=== PATIENT | male | born 1955 | race Caucasian/White ===

== ENCOUNTER → 2023-09-27 07:45 | Outpatient (REF) | payer OTHER, SELFPAY | LOC: RAD 07:45 | PROVIDERS: ATTENDING PHYSICIAN Internal Medicine Cardiovascular Disease; FAMILY PHYSICIAN Family Medicine | DX: I65.23 Occlusion and stenosis of bilateral carotid arteries (principal) | CPT/HCPCS: 93880 ==

== ENCOUNTER → 2024-05-09 13:39 | Outpatient (REF) | payer OTHER, SELFPAY | LOC: RCS 13:39 | PROVIDERS: ATTENDING PHYSICIAN Physician Assistant Medical; FAMILY PHYSICIAN Family Medicine; OTHER PHYSICIAN Internal Medicine Cardiovascular Disease | DX: Z95.2 Presence of prosthetic heart valve (principal) | CPT/HCPCS: 93306 ==

== ENCOUNTER → 2024-08-17 13:25 | Outpatient (REF) | payer OTHER, SELFPAY | LOC: MRI 13:25 | PROVIDERS: ATTENDING PHYSICIAN Specialist; FAMILY PHYSICIAN Family Medicine | DX: R97.20 Elevated prostate specific antigen [PSA] (principal); C67.8 Malignant neoplasm of overlapping sites of bladder; D07.5 Carcinoma in situ of prostate | CPT/HCPCS: 72197; 76014; 76015; A9575 ==

== ENCOUNTER → 2024-08-22 14:25 | Outpatient (REF) | payer OTHER, SELFPAY ==
[2024-08-22 16:09] LABS: Blood Urea Nitrogen 24 mg/dl (9-20); Calcium 10.0 mg/dl (8.4-10.2); Carbon Dioxide 27 mmol/L (22-30); Chloride 106 mmol/L (98-107); Glucose 96 mg/dl (70-99); Potassium 4.4 mmol/L (3.5-5.1); eGFR > 60.00
[2024-08-22 16:16] LABS: Sodium 139 mmol/L (135-145)
== END ==
LOC: REG 14:25
PROVIDERS: ATTENDING PHYSICIAN Internal Medicine Cardiovascular Disease; FAMILY PHYSICIAN Family Medicine
DX: I10 Essential (primary) hypertension (principal)
CPT/HCPCS: 36415; 80048

== ENCOUNTER 2024-10-03 02:22 | Observation (INO) | payer OTHER, SELFPAY ==
[2024-10-02 17:32] VITALS: BP 179/99
--- NOTE | 2024-10-02 17:43 | ED.GENMED ---
ED Provider Triage
<Tarsha Marrero PA-C - Last Filed: 10/02/24 17:44>
-
Patient seen by provider in Triage?: Seen in Triage
Attestation: A medical screening examination has been initiated by a qualified medical provider. Based on the assessment performed at this time, it has been determined that an emergent medical condition may exist and the patient has been informed
that further medical evaluation and possible additional diagnostic testing may be needed.
HPI: 69yoM here with R middle finger swelling and pain since last week. On abx without relief. Sent in by PCP for concern for sepsis. No f/c or systemic symptoms.
GENERAL: Alert , in no apparent distress
EYE: No visual abnormalities.
NECK: Trachea midline
ENT: No visible abnormalities.
LUNGS: No acute respiratory distress
NEUROLOGICAL: Alert and oriented
SKIN: Skin intact. No visible changes.
MUSCULOSKELETAL: Moving extremities normally
PSYCH: Normal and appropriate interaction.
This is a medical evaluation conducted in person to initiate diagnostic evaluation and provide initial therapeutics. Please see further documentation by the treating clinician.
Labs and hand x-rays ordered.
History of Present Illness
<Tarsha Marrero PA-C - Last Filed: 10/02/24 17:44>
General
Chief Complaint: Musculo-Skeletal Complaint
Time Seen by Provider: 10/02/24 23:03
<Vineet Escobar Jr., PA-C - Last Filed: 10/03/24 00:53>
General
Source: patient
Exam Limitations: none
Nursing documentation reviewed up to this point in time: agreed with
History of Present Illness
History of Present Illness:
69-year-old male past medical history of significant heart disease pacemaker mechanical heart valve currently on Coumadin presenting to the emergency department today with concerns of redness and swelling to the right middle finger over the past 5
weeks. Due to be after he was pulling weeds and cleaning a birdbath the day prior. Redness has been ongoing has been onset here for 5 days without any improvement. There is been slight worsening over the past 24 hours. Denies any systemic
symptoms.
Past History
<Tarsha Marrero PA-C - Last Filed: 10/02/24 17:44>
Past History
ED Past Medical History: CAD, Cancer, HTN, Hypercholesterolemia and Other
ED Past Surgical History: Cardiac and Urological
Review of Systems
<Vineet Escobar Jr., PA-C - Last Filed: 10/03/24 00:53>
Review of Systems
Allergies reviewed?: Yes
All Other Systems: ROS reviewed and negative except as documented in HPI and ROS
Phy Exam
<Vineet Escobar Jr., PA-C - Last Filed: 10/03/24 00:53>
Physical Exam
Physical Exam:
GENERAL: Alert , in no apparent distress
EYE: pupils equal and reactive
NECK: Supple, no significant adenopathy.
ENT: o/p clr, mmm.
CARDIAC: Regular rate and rhythm .
LUNGS: Clear breath sounds bilaterally, no acute respiratory distress, no wheezes/rales/rhonchi
ABDOMEN: Soft, without focal tenderness, no r/g, no cvat
NEUROLOGICAL: Alert and oriented, no focal neuro deficits
SKIN: Warm and dry, skin intact.
MUSCULOSKELETAL: Swelling redness to the right third digit mainly on the extensor surface there is some swelling into the hand there also is swelling on the flexor surface but no discomfort into the palm. Is able to flex and extend the finger but
does have discomfort when doing so.
PSYCH: Normal and appropriate interaction.
Course
<Tarsha Marrero PA-C - Last Filed: 10/02/24 17:44>
Orders/Labs/Results
Orders:
Orders
10/02/24 17:44
CR Hand - Right Min 3 Views Urgent
Comment:
Reason For Exam: middle finger swelling/pain
10/02/24 17:47
Complete Blood Count/With Diff Urgent
Comprehensive Metabolic Panel Urgent
Blood Culture Urgent
[facility] Source: Blood/Venous
Specimen Description:
10/02/24 23:25
CefTRIAXone [Rocephin] 2,000 mg IV NOW STA
10/02/24 23:28
PT/INR [Prothrombin Time] Urgent
Vancomycin [Vancocin] 2,000 mg 0.9% Sodium Chloride 500 ml [Nss] 500 ml IV NOW
10/02/24 23:49
Sterile Water [Sterile Water For Injection] 10 ml .ROUTE .[facility]
Abnormal Lab Results
10/02/24
17:47
Abs Immat Gran (auto) 0.1 H 10^3/uL
(0-0.05)
Absolute Neuts (auto) 6.7 H 10^3/uL
(1.4-6.5)
Absolute Monos (auto) 0.9 H 10^3/uL
(0.1-0.6)
Immature Gran % 0.6 H %
(0-0.5)
Lymphocytes % 14.1 L %
(20.5-51.1)
Monocytes % 9.5 H %
(1.7-9.3)
BUN 27 H mg/dl
(9-20)
10/02/24 17:47
10/02/24 17:47
Vital Signs
Initial and Last Documented VS:
Initial Vital Signs
Temp Pulse Resp BP Pulse Ox
97.7 F 68 16 179/99 98
10/02/24 17:32 10/02/24 17:32 10/02/24 17:32 10/02/24 17:32 10/02/24 17:32
Last Documented Vital Signs
Temp Pulse Resp BP Pulse Ox
97.7 F 68 16 154/96 98
10/02/24 17:32 10/02/24 17:32 10/02/24 17:32 10/02/24 21:51 10/02/24 21:50
<Vineet Escobar Jr., PA-C - Last Filed: 10/03/24 00:53>
Orders/Labs/Results
Orders:
Orders
10/02/24 17:44
CR Hand - Right Min 3 Views Urgent
Comment:
Reason For Exam: middle finger swelling/pain
10/02/24 17:47
Complete Blood Count/With Diff Urgent
Comprehensive Metabolic Panel Urgent
Blood Culture Urgent
[facility] Source: Blood/Venous
Specimen Description:
10/02/24 23:25
CefTRIAXone [Rocephin] 2,000 mg IV NOW STA
10/02/24 23:28
PT/INR [Prothrombin Time] Urgent
Vancomycin [Vancocin] 2,000 mg 0.9% Sodium Chloride 500 ml [Nss] 500 ml IV NOW
10/02/24 23:49
Sterile Water [Sterile Water For Injection] 10 ml .ROUTE .[facility]
Abnormal Lab Results
10/02/24
17:47
Abs Immat Gran (auto) 0.1 H 10^3/uL
(0-0.05)
Absolute Neuts (auto) 6.7 H 10^3/uL
(1.4-6.5)
Absolute Monos (auto) 0.9 H 10^3/uL
(0.1-0.6)
Immature Gran % 0.6 H %
(0-0.5)
Lymphocytes % 14.1 L %
(20.5-51.1)
Monocytes % 9.5 H %
(1.7-9.3)
BUN 27 H mg/dl
(9-20)
10/02/24 17:47
10/02/24 17:47
Vital Signs
Initial and Last Documented VS:
Initial Vital Signs
Temp Pulse Resp BP Pulse Ox
97.7 F 68 16 179/99 98
10/02/24 17:32 10/02/24 17:32 10/02/24 17:32 10/02/24 17:32 10/02/24 17:32
Last Documented Vital Signs
Temp Pulse Resp BP Pulse Ox
97.7 F 68 16 154/96 98
10/02/24 17:32 10/02/24 17:32 10/02/24 17:32 10/02/24 21:51 10/02/24 21:50
Procedures
<Vineet Escobar Jr., PA-C - Last Filed: 10/03/24 00:53>
Splint Check
Splint checked by provider?: Yes
Circulation/Movement/Sensation post splint application: brisk cap refill and pulses intact
Splinting/Sling Placement
Right Third Finger:
Procedure completed by: Tech
Pre-splint extermity exam: neurovascular intact
Type of splint: aluminium finger and finger-extension position
Splint material: aluminum-foam
Splint checked by provider?: Yes
Normal distal neurovascular exam?: Yes
<Vineet Escobar Jr., PA-C - Last Filed: 10/03/24 00:53>
MDM/Problems Addressed
MDM/Problems Addressed:
69-year-old male presenting to the emergency department today with concerns of ongoing inflammation to his right middle finger has been taking cefdinir for the past 5 days with presumed cellulitis to the area. Ongoing redness slightly worsening
over the past 24 hours. On arrival blood pressure elevated otherwise vital signs are stable. Afebrile normal white count no history of inflammatory disorders. Concerning the patient has been on appropriate outpatient antibiotics with worsening of
symptoms plan to admit for IV antibiotics and reassessment. No evidence of fluctuant or induration no obvious purulence. No evidence of flexor tenosynovitis. No tenderness into the palm or the flexor tendon. Able to flex with minimal discomfort
<Tarsha Marrero PA-C - Last Filed: 10/02/24 17:44>
*Pulse Oximetry
SaO2: 98
Oxygen Mode of Delivery: Room air
<Vineet Escobar Jr., PA-C - Last Filed: 10/03/24 00:53>
*Pulse Oximetry
Patient hypoxic: no (98)
*Critical Care Note
Total Time (30-74mins, 75-104mins- exclusive of procedures): Not Applicable
ED Attending Note
<Tarsha Marrero PA-C - Last Filed: 10/02/24 17:44>
-
Portions of this chart may have been created with voice recognition software.� Occasional wrong word or��sound alike� substitutions may have occurred due to the inherent limitations of voice recognition software.
Discharge Plan
Departure
Patient Disposition: Admit
Date of Disposition: 10/03/24
Time of Disposition: 00:53
Admit to: Med/Surg
Admit to doctor: Peterson
Presentation/result/management discussed w/ accepting MD/DO: Hospitalist
Patient with high blood pressure during this ER visit?: No
Condition: Good
Covid-19: Not Applicable
Discharge Problem:
Finger infection
Prescriptions:
No Action
atorvastatin 80 MG tablet
80 mg PO QPM Qty: 90 3RF
amlodipine 2.5 MG tablet
2.5 mg PO DAILY
irbesartan 150 MG tablet
150 mg PO DAILY
warfarin [Jantoven] 5 MG tablet
5 mg PO QPM
Patient Comments:
TAKES WITH 1MG TO EQUAL 6MG
aspirin 81 MG tablet,delayed release (DR/EC)
81 mg PO DAILY Qty: 30 0RF
Rx Instructions:
Start in 08/30/19
ezetimibe 10 MG tablet
10 mg PO QPM
warfarin [Jantoven] 0.5 MG tablet
0.5 mg PO QPM
Referrals:
PRIVATE,PHYSICIAN [Family Provider, Internal Medicine]
Interventions
Interventions:
*Risk Screen - Suicide Last Done: 10/02/24 21:37
*General Assessment Last Done: 10/02/24 21:37
*Neglect/Abuse Screening Last Done: 10/02/24 21:37
*ED- Fall Risk Assessment Last Done: 10/02/24 21:37
*ED COVID-19 Vaccine History Last Done: 10/02/24 21:37
ED-Musculoskeletal Assessment Last Done: 10/02/24 21:37
Discharge Date and Time
Print Language: FAROESE
[2024-10-02 18:01] LABS: Hematocrit 41.6 % (39.0-52.0); Hemoglobin 13.8 g/dL (13.0-18.0); Mean Corp Hgb Conc. 33.2 g/dL (33.0-37.0); Mean Corpuscular Volume 84.9 fL (80.0-94.0); Nucleated Red Blood Cells % 0 % (-); Platelet Count 293 10^3/uL (130-400); Red Cell Dist. Width 13.7 % (11.5-14.5)
[2024-10-02 18:26] LABS: ALT (SGPT) 48 U/L (0-50); AST (SGOT) 38 U/L (17-59); Albumin 4.7 g/dl (3.5-5.0); Alkaline Phosphatase 55 U/L (38-126); Blood Urea Nitrogen 27 mg/dl (9-20); Calcium 9.6 mg/dl (8.4-10.2); Carbon Dioxide 26 mmol/L (22-30); Chloride 106 mmol/L (98-107); Glucose 99 mg/dl (70-99); Potassium 4.3 mmol/L (3.5-5.1); Sodium 137 mmol/L (135-145); Total Protein 6.7 g/dl (6.3-8.2); eGFR > 60.00
[2024-10-02 21:51] VITALS: BP 154/96
[2024-10-02 21:53] VITALS: BMI 30.2
[2024-10-03] MEDS: ROCEPHIN 2000 MG IV ×2 (00:27→23:04)
[2024-10-03] MEDS: VANCOCIN 540 MG IV (01:51)
--- NOTE | 2024-10-03 01:57 | HPS.HSE ---
Family Physician
-
Family Physician: PHYSICIAN PRIVATE
Chief Complaint
-
Finger Pain
History of Present Illness
Patient is a 69y M with PMH significant for ASCVD, mechanical MVR and heart block s/p PPM who presents to ED complaining of finger pain. Patient states that he was weeding about one week ago and he noted stinging pain in the the fingertips of
both hands. He saw no evident wound, injury, etc. He developed progressive pain and swelling - specifically in the L index finger and R middle finger. He was seen by his PCP on and started on cefdinir for possible cellulitis/ infection.
His symptoms did not improve. He has since noted redness extending along the R 3rd finger and towards the hand / palm.
Patient denies any fevers / chills, N/V/D, etc.
Medical History
Past Medical History
Past Medical History: Reports Other
Additional Past Medical History:
ASCVD
Mitral Regurgitation
Second Degree Heart Block
Hypertension
Prostate cancer
Bladder cancer
Past Surgical History: Reports Other
Additional Past Surgical History:
CABG x 3
Mechanical MVR
PPM Placement
TURBT / BCG instillation
T&A
Social History
Tobacco: Non-smoker
Alcohol: Occasional
Drug: None
Family History
Family History: Not pertinent
Allergies / Home Medications
Allergies reflects when Allergies were last updated in [facility].
Home Medications with original date entered in [facility]
Allergy/Medication List:
Allergies
Allergy/AdvReac Type Severity Reaction Status Date / Time
lisinopril Allergy Itching Verified 10/02/24 17:36
Home Medications
atorvastatin 80 mg tablet 80 mg PO QPM #90 tabs 08/16/18
aspirin 81 mg tablet,delayed release 81 mg PO DAILY Blood clot prevention/tx #30 tabs 08/25/19
ezetimibe 10 mg tablet 10 mg PO QPM 01/15/21
amlodipine 5 mg tablet 5 mg PO DAILY 10/03/24
hydrochlorothiazide 12.5 mg tablet 12.5 mg PO DAILY 10/03/24
irbesartan 300 mg tablet 300 mg PO DAILY 10/03/24
warfarin 6 mg tablet 6 mg PO DAILY 10/03/24
Review of Systems
-
History Source: Patient
A 12 point ROS was completed and negative except as noted: Yes
Constitutional: Denies Fever or Chills
Respiratory: Denies Cough or Trouble Breathing
Cardiac: Denies Chest Pain or Palpitations
Abdomen/GI: Denies Abdominal Pain, Nausea, Vomiting or Diarrhea
Musculoskeletal: Reports Joint Pain
Skin: Reports Other (redness / swelling)
Neurological: Denies Dizzy or Headache
Physical Exam
Vital Signs
Vital Signs
Temp Pulse Resp BP Pulse Ox
97.7 F 68 16 154/96 98
10/02/24 17:32 10/02/24 17:32 10/02/24 17:32 10/02/24 21:51 10/02/24 21:50
Physical Exam
General: Other (69y M in no acute distress.)
HEENT: Moist mucous membranes and PERRLA
Respiratory: Clear; No Wheezes, Rales or Rhonchi
Cardiac: S1/S2, Regular Rhythm and Murmur (II/ HENRI. Mechanical S1.)
GI: Soft, Non Tender, Non Distended and Normal Bowel Sounds
Musculoskeletal: No Clubbing, No Cyanosis and Other (Localized edema distal aspect of the L index finger and R middle finger with erythema along lateral aspect of the R middle finger. No nail discharge / bleeding.)
Neuro: AO x 3
Laboratory Results
-
10/02/24 17:47
10/02/24 17:47
Laboratory Results
Total Bilirubin 0.5 mg/dl (0.2-1.3) 08/11/25 17:47
AST 38 U/L (17-59) 10/02/24 17:47
ALT 48 U/L (0-50) 10/02/24 17:47
Alkaline Phosphatase 55 U/L (38-126) 10/02/24 17:47
Impression/Plan
-
A/P: Patient is a 69y M with PMH significant for ASCVD, mechanical MVR, hypertension and prostate cancer who presents to ED complaining of one week of pain, swelling and redness in the fingers despite PO abx.
Finger Pain / Inflammation
- Observe overnight for further evaluation and treatment.
- ? irritant reaction from nettle / weeding injury.
- ? secondary infection - though no response to oral abx thus far.
- Continue IV abx started in the ED for now.
- Follow for clinical improvement.
- Monitor for any systemic fever or other complaints.
ASCVD
Mechanical MVR
Heart Block s/p PPM
- Stable. Continue usual CV med regimen.
- Continue Coumadin - follow daily INR and adjust as needed - especially while on abx.
Benign Hypertension
- Stable. Continue usual home med regimen.
Prostate Cancer
- Recent diagnosis. Watchful waiting approach.
DVT Prophylaxis: On Coumadin
Code Status: Full
[2024-10-03 02:12] LABS: INR 2.66; PT 28.3 Sec (11.4-14.6)
[2024-10-03 06:54] LABS: Hematocrit 41.8 % (39.0-52.0); Hemoglobin 13.9 g/dL (13.0-18.0); Mean Corp Hgb Conc. 33.3 g/dL (33.0-37.0); Mean Corpuscular Volume 84.3 fL (80.0-94.0); Platelet Count 287 10^3/uL (130-400); Red Cell Dist. Width 13.8 % (11.5-14.5)
[2024-10-03 06:59] LABS: INR 2.37; PT 25.9 Sec (11.4-14.6)
[2024-10-03 07:09] LABS: Blood Urea Nitrogen 22 mg/dl (9-20); Calcium 8.8 mg/dl (8.4-10.2); Carbon Dioxide 28 mmol/L (22-30); Chloride 105 mmol/L (98-107); Estimated Creatinine Clearance 87 ml/min; Glucose 114 mg/dl (70-99); Potassium 4.7 mmol/L (3.5-5.1); Sodium 138 mmol/L (135-145); eGFR > 60.00
[2024-10-03 07:46] VITALS: BP 148/97
[2024-10-03] MEDS: ORETIC 12.5 MG PO (08:20)
[2024-10-03] MEDS: NORVASC 5 MG PO (08:20)
[2024-10-03] MEDS: ASPIR LOW (ENTERIC COATED) 81 MG PO (08:21)
[2024-10-03] MEDS: AVAPRO 300 MG PO (08:21)
--- NOTE | 2024-10-03 09:05 | PHA.VAN.IN ---
Addendum entered and electronically signed by Chantal Cervantes [facility] 10/03/24 09:18:
Agree with assessment and plan
Original Note:
Assessment
- Assessment
Renal Function: Appears similar to baseline
Concomitant Antimicrobials: ceftriaxone
AUC Dosing Plan
- Dosing Variables
Dosing Weight (kg): 90
Dosing CrCl (ml/min): 87
Vd coefficient (L/kg): 0.7
- Empiric Dosing
Initial / Loading Dose: received 2000mg loading dose at 01:51 this morning
Maintenance Regimen: 1000mg q12h
Estimated AUC (mcg*h/mL): 430
Estimated Peak (mcg*h/mL): 26.4
Estimated Trough (mcg/ml): 11.4
Estimated Half Life (H): 9.0
- Monitoring
No levels ordered at this time: consider within next few days
Pharmacokinetics Vancomycin I
- -
Patient Age: 69
Patient Sex: Male
Vancomycin Day #: 1
Indication: Skin And Soft Tissue
Requesting Provider: iMan Escobar
Height / Weight:
Height 5 ft 8 in
Actual Weight 90 kg
- Vital Signs / Lab Results
Temp Pulse Resp BP Pulse Ox
97.5 F 60 16 148/97 97
10/03/24 07:46 10/03/24 08:21 10/03/24 07:46 10/03/24 08:21 10/03/24 07:46
Lab Results - Hematology
10/02/24 10/03/24
17:47 06:42
WBC 9.0 7.1
Lab Results - Chemistry
10/02/24 10/03/24
17:47 06:42
BUN 27 H 22 H
Creatinine 1.1 0.9
Estimated Creat Clear 87
Albumin 4.7
--- NOTE | 2024-10-03 14:28 | W.PN.UPDATE ---
Update Note
Progress Note Update
Seen and examined independent of independent of overnight physician
States of increased erythema on his knuckles
remains with swelling of R middle finger
General: walking around
HEENT: Moist mucous membranes
Respiratory: Clear; No Wheezes, Rales or Rhonchi
Cardiac: S1/S2, Regular Rhythm and Murmur (II/ HENRI. Mechanical S1.)
GI: Soft, Non Tender, Non Distended and Normal Bowel Sounds
Musculoskeletal: No Clubbing, No Cyanosis and Other (Localized edema distal aspect of the L index finger and R middle finger with erythema along lateral aspect of the R middle finger. No nail discharge / bleeding.)
Neuro: AO x 3
A/P: Patient is a 69y M with PMH significant for ASCVD, mechanical MVR, hypertension and prostate cancer who presents to ED complaining of one week of pain, swelling and redness in the fingers despite PO abx.
R Finger Pain / Inflammation trending up to hand/palm
- ? irritant reaction from nettle / weeding injury.
- ? secondary infection - though no response to oral abx thus far.
- Continue IV abx started in the ED for now.
- Follow for clinical improvement.
- Monitor for any systemic fever or other complaints.
- Will ask ortho ?tenosynovitis
ASCVD
Mechanical MVR
Heart Block s/p PPM
- Stable. Continue usual CV med regimen.
- Continue Coumadin - follow daily INR and adjust as needed - especially while on abx. INR at 2.37
- Sees [facility] cardiology
Benign Hypertension
- Stable. Continue usual home med regimen.
Prostate Cancer
- Recent diagnosis. Watchful waiting approach.
DVT Prophylaxis: On Coumadin
Code Status: Full
[2024-10-03 14:53] VITALS: BP 139/87
--- NOTE | 2024-10-03 15:27 | CON.ORTHO ---
Consultation
-
Date/Time Consultation Requested: 10/03/24
Date/Time Consultation Performed: 10/03/24 @3:15pm
Requesting Provider: ER Provider
Performing Provider: Katy Qiu PA-C, Mohan Alan MD
Reason for Consultation: right middle finger erythema and swelling
Consultation - Orthopedics
History
HPI: 69yo male presented to the ER for worsening redness and swelling to his right middle finger. About one week ago, he was pulling weeds and did have some breaks in his skin. He reports that he was evaluated and started on Keflex. Yesterday, he
noticed some increased redness and swelling to his finger and this which spread to the area of his knuckles prompting him to come to the ER. He is able to make a complete fist and extend all digits. He is right hand dominant.
PAST MEDICAL HISTORY: ASCVD, Mitral Regurgitation, Second Degree Heart Block, Hypertension, Prostate cancer, Bladder cancer
PAST SURGICAL HISTORY: CABG x 3, Mechanical MVR, PPM Placement, TURBT / BCG instillation, T&A
SOCIAL HISTORY: lives at home, denie tobacco, alcohol
FAMILY HISTORY: Noncontributory
REVIEW OF SYSTEMS: 12 point review of systems obtained and negative except those mentioned in the HPI
Allergies / Home Medications
Allergy/AdvReac Type Severity Reaction Status Date / Time
lisinopril Allergy Itching Verified 10/02/24 17:36
�Medication �Instructions �Recorded
atorvastatin 80 mg tablet 80 mg PO QPM #90 tabs 08/16/18
aspirin 81 mg tablet,delayed 81 mg PO DAILY Blood clot 08/25/19
release prevention/tx #30 tabs
ezetimibe 10 mg tablet 10 mg PO QPM 01/15/21
amlodipine 5 mg tablet 5 mg PO DAILY 10/03/24
cefdinir 300 mg capsule 300 mg PO BID 10/03/24
hydrochlorothiazide 12.5 mg tablet 12.5 mg PO DAILY 10/03/24
irbesartan 300 mg tablet 300 mg PO DAILY 10/03/24
warfarin 6 mg tablet 6 mg PO QPM 10/03/24
Vital Signs / Lab Results
Temp Pulse Resp BP Pulse Ox
97.7 F 61 12 139/87 98
10/03/24 14:53 10/03/24 14:53 10/03/24 14:53 10/03/24 14:53 10/03/24 14:53
10/03/24 06:42
10/03/24 06:42
RADIOGRAPHIC FINDINGS:
Xrays right hand shoe no acute fracture or dislocation. The joint alignments are maintained. Marginal osteophytes of the third distal interphalangeal joint with the largest projecting from the ventral aspect of the head of the middle phalanx.
Punctate 2 mm calcification or foreign body adjacent to the neck of the fifth metacarpal. Mild soft tissue swelling about the third finger, nonspecific.
PHYSICAL EXAM:
General: AAO x3, no acute distress
HEENT: NCAT, normal hearing, sclera anicteric
Heart: No JVD
Lungs: Normal work of breathing on room air
MSK: Focal exam of right hand reveals small healing abrasions to the tip of right middle finger. +erythema to the dorsal middle finger extending to knuckle. +edema of entire finger. nontender to palpation. no palpable fluid collection. able to make
a complete fist and extend all digits without pain. no pain with passive range of motion. sensation intact to light touch. cap refill <2secs
Assessment / Plan
ASSESSMENT/PLAN:
Right middle finger cellulitis
--Low concern for flexor tenosynovitis given patient has painless passive range of motion and symptoms are mostly to dorsal aspect of hand
--Patient started on IV ceftriaxone and vancomycin
--Continue to monitor response to antibiotics.
--Encouraged patient to continue with elevation and range of motion
--Pain management as needed
--May have diet today. Will make NPO after midnight pending evaluation in AM
[2024-10-03] MEDS: ZETIA 10 MG PO (17:41)
[2024-10-03] MEDS: LIPITOR 80 MG PO (17:42)
[2024-10-03] MEDS: COUMADIN 6 MG PO (17:42)
[2024-10-03] MEDS: VANCOCIN 200 IV (17:42)
[2024-10-03] MEDS: STERILE WATER FOR INJECTION 20 ML IV (23:04)
[2024-10-04] MEDS: VANCOCIN 200 IV (06:08)
[2024-10-04 07:00] VITALS: BP 141/87
[2024-10-04] MEDS: AVAPRO 300 MG PO (08:07)
[2024-10-04] MEDS: ORETIC 12.5 MG PO (08:07)
[2024-10-04] MEDS: NORVASC 5 MG PO (08:07)
[2024-10-04] MEDS: ASPIR LOW (ENTERIC COATED) 81 MG PO (08:07)
[2024-10-04 08:20] LABS: Hematocrit 47.0 % (39.0-52.0); Hemoglobin 15.1 g/dL (13.0-18.0); Mean Corp Hgb Conc. 32.1 g/dL (33.0-37.0); Mean Corpuscular Volume 86.1 fL (80.0-94.0); Nucleated Red Blood Cells % 0 % (-); Platelet Count 313 10^3/uL (130-400); Red Cell Dist. Width 13.8 % (11.5-14.5)
[2024-10-04 08:24] LABS: INR 1.80; PT 21.4 Sec (11.4-14.6)
[2024-10-04 08:53] LABS: Blood Urea Nitrogen 19 mg/dl (9-20); Calcium 9.6 mg/dl (8.4-10.2); Carbon Dioxide 33 mmol/L (22-30); Chloride 101 mmol/L (98-107); Estimated Creatinine Clearance 87 ml/min; Glucose 111 mg/dl (70-99); Potassium 4.5 mmol/L (3.5-5.1); Sodium 138 mmol/L (135-145); eGFR > 60.00
--- NOTE | 2024-10-04 10:08 | W.PN.UPDATE ---
Update Note
Progress Note Update
Patient was seen and examined this morning. No significant changes in terms of the erythema with continued dorsal irritation about the MP joint area with no focal swelling or effusion. No palpable fluid collection. No significant whole
digit/fusiform swelling, no pain with passive extension, not in a rested flexed position, and no tenderness of the flexor tendon sheath.
Most consistent with superficial cellulitis with no fluid collection requiring incision and debridement; recommend continue with antibiotic treatment; if there is further concern for fluid collection recommend MRI for further evaluation. Orthopedic
surgery will continue to follow it can consider outpatient follow-up on the close basis as needed
[2024-10-04 11:00] VITALS: BP 139/95
--- NOTE | 2024-10-04 11:21 | W.PN.HOSP.TC ---
Addendum entered and electronically signed by Alireza Hope MD 10/04/24 11:41:
Discussed with patient about his subtherapeutic INR. Patient said he was off Coumadin for 2 weeks and he was on bridging therapy with Lovenox for his prostate biopsy. States he has INR machine at home and will recheck his level tomorrow morning
and called into the Coumadin clinic. States when his INR is low he usually increases his dose on his own. States he will take 9 mg of Coumadin tonight and follow-up INR level in the morning and call the cardiology coumadin clinic. Did offer
patient coumadin here which patient states he will take his own supply at home tonight.
Original Note:
Today's Communication/Plan
-
po abx
dc home
Assessment / Plan
Assessment / Plan
General: walking around
HEENT: Moist mucous membranes
Respiratory: Clear; No Wheezes, Rales or Rhonchi
Cardiac: S1/S2, Regular Rhythm and Murmur (II/ HENRI. Mechanical S1.)
GI: Soft, Non Tender, Non Distended and Normal Bowel Sounds
Musculoskeletal: No Clubbing, No Cyanosis and Other ( R middle finger with mild erythema along lateral aspect of the R middle finger. No nail discharge / bleeding/no open wound with drainage. Improvement in erythema on knuckles) able to
flex/extend wrist and digits b/l hand without pain.
Neuro: AO x 3
A/P: Patient is a 69y M with PMH significant for ASCVD, mechanical MVR, hypertension and prostate cancer who presents to ED complaining of one week of pain, swelling and redness in the fingers despite PO abx.
R Finger Pain / Inflammation trending up to hand/palm
- ? irritant reaction from nettle / weeding injury leading to cellulitis. No open wound or abscess noted physically. No severe swelling currently. No palpable fluid collection noted. Improvement in erythema.
- Cont cephalosporin at home and add doxy on dc.
- Follow for clinical improvement.
- Monitor for any systemic fever or other complaints.
- Improvement noted. Appreciate ortho recs.
ASCVD
Mechanical MVR
Heart Block s/p PPM
- Stable. Continue usual CV med regimen.
- Continue Coumadin -
- Sees [facility] cardiology
Benign Hypertension
- Stable. Continue usual home med regimen.
Prostate Cancer
- Recent diagnosis. Cont OP f/u
DVT Prophylaxis: On Coumadin
Code Status: Full
More than 30 minutes spent in discharge including
Final examination of the patient
Summarizing hospital stay
Instructions for continuing care to all relevant caregivers
Preparation of discharge records, prescriptions, and referral forms
Total time spent (in minutes): 50
Anticipated Discharge: Today
Subjective/Interval History
-
Date of Service: October 04, 2024
Patient with improvement in erythema on knuckles
Afebrile
Objective Data
-
Labs:
Laboratory Results
10/04/24
07:45
WBC 7.9
Hgb 15.1
Hct 47.0
Plt Count 313
PT 21.4 H
INR 1.80
Sodium 138
Potassium 4.5
Chloride 101
Carbon Dioxide 33 H
BUN 19
Creatinine 0.9
Glucose 111 H
Calcium 9.6
Vital Signs:
Vital Signs
Temp Pulse Resp BP Pulse Ox
97.5 F 58 18 141/87 97
10/04/24 07:00 10/04/24 07:00 10/04/24 07:00 10/04/24 07:00 10/04/24 07:00
I&O
10/03/24 10/04/24 10/05/24
06:59 06:59 06:59
Intake Total 400 / 400
Balance 400 / 400
--- NOTE | 2024-10-04 11:36 | PHA.VAN.FU ---
Vancomycin Assessment / Plan
- Assessment
Renal Function: Stable
WBC's are: WNL
In the past 24 hrs, patient has been: Afebrile
Concomitant Antimicrobials: ceftriaxone
- Dosing Plan
Continue: 1000mg q12h
- Monitoring Plan
No level(s) ordered at this time: consider within the next few days as pt approaches steady state
- Follow Up
Pharmacy will continue to follow.
Vancomycin Follow UP
- -
Patient Age: 69
Patient Sex: Male
Vancomycin Day #: 2
Indication: Skin And Soft Tissue
Requesting Provider: Mian Escobar
Height / Weight:
Height 5 ft 8 in
Actual Weight 90 kg
- Vital Signs / Lab Results
Temp Pulse Resp BP Pulse Ox
97.5 F 58 18 141/87 97
10/04/24 07:00 10/04/24 07:00 10/04/24 07:00 10/04/24 07:00 10/04/24 07:00
Lab Results - Hematology
10/02/24 10/03/24 10/04/24
17:47 06:42 07:45
WBC 9.0 7.1 7.9
Lab Results - Chemistry
10/02/24 10/03/24 10/04/24
17:47 06:42 07:45
BUN 27 H 22 H 19
Creatinine 1.1 0.9 0.9
Estimated Creat Clear 87 87
Albumin 4.7
Microbiology Results
10/02/24 17:47 Blood Culture - Preliminary
Blood/Venous No Growth in 24 hours- Final report to follow
--- NOTE | 2024-10-04 11:50 | CM ---
CM reviewed chart, patient seen bedside, initial assessment completed. Patient resides with significant other in a multiple story home, no steps to enter, 10 or so steps to second floor. Patient is independent with ADLs/IADLs, denies use of DME,
denies VN/SNF, reports [facility] several years ago. Patient confirms PCP Dalton Maynard, pharmacy [facility], confirms prescription coverage. Patient denies insecurities at home, confirms transport home. BEST form verbally reviewed,
provided with copy, placed in chart. CM will continue to follow for all discharge planning needs.
Plan; home no needs
--- NOTE | 2024-10-04 13:29 | W.DCSUMMARY ---
Discharge Summary
Discharge Data
Date of Admission: 10/03/24
Date of Discharge: 10/04/24
-
Pending Results: No
Hospital Course
Patient is a 69y M with PMH significant for ASCVD, mechanical MVR, hypertension and prostate cancer who presents to ED complaining of one week of pain, swelling and redness in the fingers despite PO abx. R Finger Pain / Inflammation trending up
to hand/palm. Patient was started on prospective IV vancomycin and ceftriaxone. Orthopedic was consulted. Recommend continue with conservative management. ? irritant reaction from nettle / weeding injury leading to cellulitis. No open wound or
abscess noted physically. No severe swelling currently. No palpable fluid collection noted. Improvement in erythema with IV antibiotics. Patient without any fevers. Patient with significant improvement erythema and will be transition from IV
antibiotics to p.o. antibiotics on discharge. Recommend to follow-up with orthopedic if no improvement. Discussed with patient about his subtherapeutic INR. Patient said he was off Coumadin for 2 weeks and he was on bridging therapy with Lovenox
for his prostate biopsy. States he has INR machine at home and will recheck his level tomorrow morning and called into the Coumadin clinic. States when his INR is low he usually increases his dose on his own. States he will take 9 mg of Coumadin
tonight and follow-up INR level in the morning and call the cardiology coumadin clinic. Did offer patient coumadin here which patient states he will take his own supply at home tonight.
Discharge Plan
-
Patient Disposition: Home (Routine Discharge)
Discharge Diagnosis/Procedures: R metacarpal and Finger Pain / Inflammation likely 2/2 cellulitis vs. ? irritant reaction from nettle / weeding injury
Condition: Fair
Diet: Low Cholesterol
Activity: As tolerated
Driving Restrictions: As prior to admission
Blood Work: INR in 1 day at home f/u dose adjustment with coumadin clinic.
Activity Restrictions/Additional Instructions:
Doxycycline Precautions
�� Take with at least 6 oz H2O
�� Take with food but no calcium containing products like milk or cheese
�� Ideally you would not take any multivitamins, calcium, magnesium or zinc containing products.
�� If you must take one of these products make sure that the pills are by at least 3 hours.
�� Sit up for at least 30 minutes after each dose to prevent heartburn.
�� Your skin will be more sensitive to the sun while you are on doxycycline - it will be very easy for you to get a sunburn.
Referrals:
Mohan Alan MD [Active, Orthopedics] - in one to two weeks
Referral Note: f/u if with no improvement
PRIVATE,PHYSICIAN [Family Provider, Internal Medicine] - in less than 1 week
Prescriptions:
New
doxycycline hyclate 100 mg capsule
100 mg PO BID Qty: 14 0RF
Continued
atorvastatin 80 MG tablet
80 mg PO QPM Qty: 90 3RF
aspirin 81 MG tablet,delayed release (DR/EC)
81 mg PO DAILY Qty: 30 0RF
Rx Instructions:
Start in 08/30/19
ezetimibe 10 MG tablet
10 mg PO QPM
amlodipine 5 mg Tablet
5 mg PO DAILY
warfarin 6 mg Tablet
6 mg PO QPM
irbesartan 300 mg Tablet
300 mg PO DAILY
hydrochlorothiazide 12.5 mg Tablet
12.5 mg PO DAILY
cefdinir 300 mg Capsule
300 mg PO BID
Rx Instructions:
for 7 days starting 09/28/24
Discharge Orders:
Discharge Patient (As Directed); Ordered 10/04/24
Ordered By: Alireza Hope
Discharge Date and Time
Discharge Date/Time: 10/04/24 11:54
Print Language: [id number]
== END 2024-10-04 11:54 | disposition home or self-care (01) ==
LOC: 4 WEST ACU 02:22
PROVIDERS: Emergency Medicine; Physician Assistant; ADMITTING PHYSICIAN Hospitalist; ATTENDING PHYSICIAN Hospitalist; CONSULT PHYSICIAN Specialist; EMERGENCY PHYSICIAN Emergency Medicine
DX: M79.644 Pain in right finger(s) (principal); R22.31 Localized swelling, mass and lump, right upper limb; I25.10 Atherosclerotic heart disease of native coronary artery without angina pectoris; I10 Essential (primary) hypertension; Z79.01 Long term (current) use of anticoagulants; Z79.899 Other long term (current) drug therapy; Z95.0 Presence of cardiac pacemaker
CPT/HCPCS: 29130; 73130; 80048; 80053; 85025; 85027; 85610; 87040; 96374; 99285; G0378